=== PATIENT | male | born 1975 | race Caucasian/White ===

== ENCOUNTER 2024-01-16 09:46 | Emergency (ER) | payer OTHER, SELFPAY ==
[2024-01-16 09:52] VITALS: BP 144/97
--- NOTE | 2024-01-16 10:04 | ED.GENMED ---
History of Present Illness
General
Chief Complaint: Chest Pain
Source: patient
Exam Limitations: none
Time Seen by Provider: 01/16/24 09:59
Travel History
Have you had any contact with someone who has COVID-19?: No
Do you have any symptoms of coronavirus? Fever > 100 degrees, chills, cough, shortness of breath, sore throat, loss of taste or smell, muscle aches, or headache?: No
History of Present Illness
History of Present Illness:
48-year-old male with history of reflux presents complaining of 2 weeks worth of constant left-sided chest discomfort. He notes a pressure sensation not made worse with breathing. He denies shortness of breath cough or fever. Does not radiate
down his arm or to his neck. He denies any palpitations. No leg swelling or calf pain. No recent travel or surgery. He states he lost his 3 weeks ago. He thought it was his reflux and he doubled his reflux medication without any relief.
No other complaints at this time
Phy Exam
Physical Exam
Physical Exam:
General: Well-appearing male no acute respiratory distress
HEENT: Normocephalic atraumatic
Heart: Regular rate and rhythm no murmurs
Lungs: Clear no wheeze
Extremities: No cyanosis or edema
Abdomen: Soft nontender
Scores
Heart Score for Chest Pain Patients
STEMI patient?: No
History: Slightly or Non-Suspicious
ECG: Normal
Age: >45 - <65 years
Risk Factors: No Risk Factors
Troponin: </= Normal Limit
Heart Score for Chest Pain Patients: 1
Heart Score Risk: 2.5% MACE over next 6 weeks
Course
Orders/Labs/Results
Orders:
Orders
01/16/24 09:48
ECG [Electrocardiogram (*1)] Urgent
Reason for Study: Chest Pain
EKG- Treatment ONCE
01/16/24 10:12
CR Chest - 2 Views Urgent
Comment:
Reason For Exam: chest pain
01/16/24 10:21
CMP [Comprehensive Metabolic Panel] Urgent
Complete Blood Count/With Diff Urgent
TSH Reflex To Free T4 Urgent
Comment: ADD ON
Troponin I Urgent
01/16/24 10:51
Add On- LAB Urgent
Tests Added?: tsh reflex to t4
Abnormal Lab Results
01/16/24
10:21
MCH 31.4 H pg
(27.0-31.0)
Sodium 132 L mmol/L
(135-145)
Glucose 140 H mg/dl
(70-99)
01/16/24 10:21
01/16/24 10:21
Vital Signs
Initial and Last Documented VS:
Initial Vital Signs
Temp Pulse Resp BP Pulse Ox
98.1 F 79 18 144/97 100
01/16/24 09:52 01/16/24 09:52 01/16/24 09:52 01/16/24 09:52 01/16/24 09:52
Last Documented Vital Signs
Temp Pulse Resp BP Pulse Ox
98.1 F 72 19 132/94 98
01/16/24 09:52 01/16/24 12:15 01/16/24 12:15 01/16/24 12:00 01/16/24 12:15
MDM/Problems Addressed
Differential Diagnosis Includes:
Patient with chest pain constant for 2 weeks. Recent traumatic event including loss of . EKG shows sinus rhythm without ischemic changes. Will check troponin and chest x-ray. No risk for PE. Pain is not pleuritic he has stable vital signs.
Do not suspect PE.
*Critical Care Note
Total Time (30-74mins, 75-104mins- exclusive of procedures): Not Applicable
Update Note
Update Note:
Patient reexamined. Still nontoxic. Vital signs remained stable troponin undetectable chest x-ray clear. 2 weeks of constant chest pain unlikely to be ACS. Vital signs and history does not suggest PE. Recommended Tylenol for pain. Cardiology
follow-up provided.
ED Attending Note
-
Portions of this chart may have been created with voice recognition software.� Occasional wrong word or��sound alike� substitutions may have occurred due to the inherent limitations of voice recognition software.
Discharge Plan
Departure
Patient Disposition: Home (Routine Discharge)
Date of Disposition: 01/16/24
Time of Disposition: 13:14
Patient with high blood pressure during this ER visit?: No
Discharge Problem:
Chest pain
Instructions: Chest Pain CBC Follow Up
Referrals:
Nam Martinez MD [Family Provider] -
Activity Restrictions/Additional Instructions:
You may use Tylenol for pain peer return here for worsening or different symptoms. Follow-up with cardiology otherwise.
Interventions
Interventions:
*Risk Screen - Suicide Last Done: 01/16/24 10:09
*General Assessment Last Done: 01/16/24 10:09
*Neglect/Abuse Screening Last Done: 01/16/24 10:09
ED- Fall Risk Assessment Last Done: 01/16/24 10:09
*ED COVID-19 Vaccine History Last Done: 01/16/24 09:52
ED- Cardiac Assessment Last Done: 01/16/24 10:09
Discharge Date and Time
Print Language: PRYDEINIG
[2024-01-16 10:13] VITALS: BP 141/104
[2024-01-16 10:30] LABS: % Basophils 0.4 % (0-2); % Eosinophils 0.8 % (0-6); % Immature Granulocytes 0.1 % (0-0.5); % Lymphocytes 24.1 % (20.5-51.1); % Monocytes 6.6 % (1.7-9.3); Absolute Eosinophils 0.1 10^3/uL (0-0.7); Absolute Lymphocytes 1.7 10^3/uL (1.2-3.4); Absolute Monocytes 0.5 10^3/uL (0.1-0.6); Absolute Neutrophils 4.8 10^3/uL (1.4-6.5); Hemoglobin 15.4 g/dL (13.0-18.0); Mean Corpuscular Hgb 31.4 pg (27.0-31.0); Mean Corpuscular Volume 89.6 fL (80.0-94.0); Mean Platelet Volume 9.5 fL (7.4-10.4); Nucleated Red Blood Cells % 0 % (-); Platelet Count 296 10^3/uL (130-400); Red Blood Cell Count 4.91 10^6/uL (4.70-6.10); Red Cell Dist. Width 12.7 % (11.5-14.5); White Blood Cell Count 7.1 10^3/uL (4.8-10.8)
--- NOTE | 2024-01-16 10:40 | EDRN ---
Patient with c/o left sided chest pain and palpitations for the past 2 weeks. Patient stated that the pain started after his unexpectedly 3 weeks ago. Patient stated that the pain comes and goes. Denies any nausea,SOB and radiation.
[2024-01-16 10:46] LABS: ALT (SGPT) 29 U/L (0-50); AST (SGOT) 27 U/L (17-59); Albumin 4.8 g/dl (3.5-5.0); Alkaline Phosphatase 48 U/L (38-126); Blood Urea Nitrogen 14 mg/dl (9-20); Calcium 9.8 mg/dl (8.4-10.2); Carbon Dioxide 27 mmol/L (22-30); Chloride 99 mmol/L (98-107); Glucose 140 mg/dl (70-99); Potassium 4.1 mmol/L (3.5-5.1); Sodium 132 mmol/L (135-145); Total Bilirubin 0.5 mg/dl (0.2-1.3); Total Protein 7.2 g/dl (6.3-8.2); eGFR > 60.00
[2024-01-16 10:58] LABS: Troponin I < 0.012 ng/ml
[2024-01-16 11:00] VITALS: BP 123/92
[2024-01-16 12:00] VITALS: BP 132/94
[2024-01-16 12:54] LABS: TSH Reflex To Free T4 1.11 uIU/ml (0.47-4.68)
[2024-01-16 13:00] VITALS: BP 137/99
== END 2024-01-16 13:40 | disposition home or self-care (01) ==
LOC: EMR 09:46
PROVIDERS: EMERGENCY PHYSICIAN Emergency Medicine; FAMILY PHYSICIAN Family Medicine
DX: R07.89 Other chest pain (principal); K21.9 Gastro-esophageal reflux disease without esophagitis; Z63.4 Disappearance and death of family member; Z88.0 Allergy status to penicillin
CPT/HCPCS: 99283; 71046; 80053; 84443; 84484; 85025; 93005